=== PATIENT | female | born 1990 | race Caucasian/White ===

== ENCOUNTER 2019-09-18 15:48 | Outpatient (CLI) | payer OTHER, SELFPAY ==
--- NOTE | ~2019-09-18 | US_ITS ---
EXAMINATION: US OB <=14 wk fetus w TV EXAM DATE: 09/18/2019 16:27 INDICATION: , for dating. First trimester. TECHNIQUE: Pelvic obstetrical transabdominal and transvaginal sonogram was performed by a technologi . There are multiple grayscale and Doppler images available for interpretation. There are no greg ier studies of this gestation for comparison. FINDINGS: Uterus measures 10.7 x 8.9 x 9.0 cm. There is intrauterine gestation sac. pole with heart rate confirmed at 176 beats per minute. The 4.2 cm crown-rump length corresponds to estimated gestational age by ultrasound of 11 weeks 1 day, estimated date of confinement 04/07/2020. Yolk sac is identified. There is no sonographic evidence of subchorionic hemorrhage. Left ovary measures 3.2 x 2.6 x 2.7, may have the corpus luteal cyst. The right ovary is not identified. IMPRESSION: Live intrauterine gestation, age by ultrasound 11 weeks 1 day. Reviewed, dictated and finalized at location A.
== END 2019-09-18 15:49 | disposition home or self-care (01) ==
LOC: ANHIMG 15:54
PROVIDERS: PCP Internal Medicine; Visit Provider Student in an Organized Health Care Education/Training Program
DX: Z36.89 Encounter for other specified antenatal screening (principal); Z3A.11 11 weeks gestation of pregnancy
CPT/HCPCS: 76801; 76817

== ENCOUNTER 2019-10-02 15:20 | Outpatient (CLI) | payer OTHER, SELFPAY ==
[2019-10-02 16:19] LABS: Basophils Percent Auto 0.3 % (0.2-1.2); Eosinophils Absolute Auto 0.1 K/mm3 (0-0.3); Eosinophils Percent Auto 0.9 % (0-4.4); Hematocrit 37.4 % (37.0-47.0); Hemoglobin 12.4 g/dL (12.0-15.0); Immature Granulocyte Absolute 0.03 K/mm3 (0.00-0.031); Immature Granulocyte Percent A 0.3 % (0-0.5); Lymphocytes Absolute Auto 3.21 K/mm3 (0.9-3.2); Mean Corpuscular HGB Conc 33.2 g/dl (32-36); Mean Corpuscular Volume 84.4 fl (80-100); Mean Platelet Volume 9.9 fl (7.4-10.4); Monocytes Absolute Auto 0.7 K/mm3 (0.1-0.6); Monocytes Percent Auto 8.1 % (2.6-8.5); Neutrophils Absolute Auto 4.8 K/mm3 (1.3-6.7); Neutrophils Percent Auto 54.4 % (45.5-73.1); Platelet Count Result 264 k/mm3 (150-375); Red Blood Count 4.43 M/mm3 (4.2-5.4); Red Cell Distribution Width 12.6 % (11.5-14.5); White Blood Count 8.9 K/mm3 (4.5-10.0)
[2019-10-02 18:21] LABS: Vitamin D 25 Hydroxy 22.6 ng/mL
[2019-10-02 18:40] LABS: Hepatitis B Surface Antigen Negative (Negative); Rubella IgG Antibody 11.6 IU/ML
[2019-10-02 18:52] LABS: HIV 1/2 Ab P24 Ag Result Negative (Negative); Hepatitis C Virus Antibody Negative (Negative)
[2019-10-03 07:53] LABS: Rapid Plasma Reagin Non-Reactive (NonReactive)
[2019-10-06 20:15] LABS: Varicella IgG Antibody <135.00 Index (>=165.00)
[2019-10-08 00:02] LABS: Hemoglobin 12.6 g/dL (11.7-15.5); MCH 28.2 pg (27.0-33.0); MCV 84.9 FL (80.0-100.0); RDW 13.9 % (11.0-15.0); Red Blood Cell Count 4.48 Mill/uL (3.80-5.10)
== END 2019-10-02 15:21 | disposition home or self-care (01) ==
PROVIDERS: PCP Internal Medicine; Visit Provider Student in an Organized Health Care Education/Training Program
DX: Z34.90 Encounter for supervision of normal pregnancy, unspecified, unspecified trimester (principal); Z3A.00 Weeks of gestation of pregnancy not specified
CPT/HCPCS: 36415; 82306; 83021; 84443; 85025; 86592; 86703; 86762; 86787; 86803; 86850; 86900; 86901; 87340; G0432

== ENCOUNTER 2019-11-29 08:41 | Outpatient (CLI) | payer OTHER, SELFPAY ==
--- NOTE | ~2019-11-29 | US_ITS ---
EXAMINATION: US OB /maternal detail DATE: 11/29/2019 09:53 INDICATION: Second trimester anatomic survey TECHNIQUE: Real-time ultrasound of the pelvis was performed. COMPARISON: None. FINDINGS: There is a single living fetus in variable presentation. The placenta is anterior. heart rate i s 141 beats per minute (bpm). cardiac activity and movement are noted. The amniotic flui d index is subjectively normal. The following anatomy was identified as normal: 4 chamber heart 3 vessel cord cord insertion kidneys urinary bladder stomach spine diaphragm ventricles cisterna magna cerebellum The following biometric data were obtained: Biparietal diameter (BPD): 5.0 cm; head circumference (HC): 18.0 cm; abdominal circumference (AC): 13 .9 cm; femur length (FL): 3.4 cm. The head circumference to abdominal circumference ratio is greater than two standard deviations above the mean. These measurements are otherwise concordant. Estimated weight is 331 g +/- 49 g, which correlates with the 3rd percentile when 04/07/2020 is used as estimated date of delivery. As single measurements, these parameters are each equal to the following estimated gestational ages w ith ranges of +/- 2 standard deviations: BPD: 21 weeks 1 days ( 19 weeks 3 days - 22 weeks 6 days). HC: 20 weeks 3 days ( 19 weeks 0 days - 21 weeks 6 days). AC: 19 weeks 2 days ( 17 weeks 2 days - 21 weeks 3 days). FL: 20 weeks 6 days ( 19 weeks 0 days - 22 weeks 4 days). estimated gestational age based solely on measurements from this exam is 20 weeks 3 days +/- 1 weeks 3 days. IMPRESSION: 1. Single living fetus in variable presentation. 2. Estimated weight is 331 g +/- 49 g, which correlates with the 3rd percentile when 04/07/2020 is used as estimated date of delivery. 3. Head circumference to abdominal circumference ratio greater than two standard deviations above the mean. Reviewed, dictated and finalized at location A. IMPRESSION: 1. Single living fetus in variable presentation. 2. Estimated weight is 331 g +/- 49 g, which correlates with the 3rd perc entile when 04/07/2020 is used as estimated date of delivery. 3. Head circumference to abdominal circumference ratio greater than two standar d deviations above the mean.
== END 2019-11-29 08:42 | disposition home or self-care (01) ==
LOC: ANHIMG 08:45
PROVIDERS: PCP Internal Medicine; Visit Provider Student in an Organized Health Care Education/Training Program
DX: Z36.89 Encounter for other specified antenatal screening (principal); Z3A.20 20 weeks gestation of pregnancy
CPT/HCPCS: 76805

== ENCOUNTER 2020-01-07 13:11 | Outpatient (CLI) | payer OTHER, SELFPAY ==
[2020-01-07 15:11] LABS: Basophils Percent Auto 0.3 % (0.2-1.2); Eosinophils Absolute Auto 0.1 K/mm3 (0-0.3); Hematocrit 35.1 % (37.0-47.0); Hemoglobin 11.6 g/dL (12.0-15.0); Immature Granulocyte Absolute 0.08 K/mm3 (0.00-0.031); Immature Granulocyte Percent A 0.8 % (0-0.5); Lymphocytes Absolute Auto 2.61 K/mm3 (0.9-3.2); Lymphocytes Percent Auto 24.9 % (18.3-44.2); Mean Corpuscular Hemoglobin 29.1 pg (26-34); Mean Platelet Volume 9.6 fl (7.4-10.4); Monocytes Absolute Auto 0.7 K/mm3 (0.1-0.6); Neutrophils Absolute Auto 6.9 K/mm3 (1.3-6.7); Platelet Count Result 272 k/mm3 (150-375); Red Blood Count 3.99 M/mm3 (4.2-5.4); Red Cell Distribution Width 12.8 % (11.5-14.5); White Blood Count 10.5 K/mm3 (4.5-10.0)
[2020-01-07 15:20] LABS: Glucose 1 Hour PP 50gm Dose 105 mg/dL
[2020-01-18 20:55] LABS: CF Result NEGATIVE (NEGATIVE)
== END 2020-01-07 13:12 | disposition home or self-care (01) ==
PROVIDERS: PCP Internal Medicine; Visit Provider Student in an Organized Health Care Education/Training Program
DX: Z34.90 Encounter for supervision of normal pregnancy, unspecified, unspecified trimester (principal); Z3A.00 Weeks of gestation of pregnancy not specified
CPT/HCPCS: 36415; 81220; 81243; 82947; 85025

== ENCOUNTER 2020-01-28 10:37 | Outpatient (CLI) | payer OTHER, SELFPAY ==
[2020-01-28] MEDS: RHO(D) IMMUNE GLOBULIN 300 MCG SYRINGE IM (14:46)
== END 2020-01-28 10:38 | disposition home or self-care (01) ==
PROVIDERS: PCP Internal Medicine; Visit Provider Student in an Organized Health Care Education/Training Program
DX: Z34.02 Encounter for supervision of normal first pregnancy, second trimester (principal)
CPT/HCPCS: 36415; 85461; 90384; 96372; J2790

== ENCOUNTER 2020-02-27 16:48 | Outpatient (CLI) | payer OTHER, SELFPAY ==
[2020-02-27 17:12] LABS: Basophils Percent Auto 0.2 % (0.2-1.2); Eosinophils Absolute Auto 0.1 K/mm3 (0-0.3); Eosinophils Percent Auto 0.5 % (0-4.4); Hemoglobin 11.6 g/dL (12.0-15.0); Immature Granulocyte Absolute 0.05 K/mm3 (0.00-0.031); Immature Granulocyte Percent A 0.5 % (0-0.5); Lymphocytes Absolute Auto 2.52 K/mm3 (0.9-3.2); Lymphocytes Percent Auto 22.9 % (18.3-44.2); Mean Corpuscular HGB Conc 34.1 g/dl (32-36); Mean Corpuscular Hemoglobin 29.4 pg (26-34); Mean Corpuscular Volume 86.1 fl (80-100); Mean Platelet Volume 9.7 fl (7.4-10.4); Monocytes Absolute Auto 0.7 K/mm3 (0.1-0.6); Monocytes Percent Auto 6.4 % (2.6-8.5); Neutrophils Absolute Auto 7.7 K/mm3 (1.3-6.7); Neutrophils Percent Auto 69.5 % (45.5-73.1); Platelet Count Result 267 k/mm3 (150-375); Red Blood Count 3.95 M/mm3 (4.2-5.4); Red Cell Distribution Width 12.4 % (11.5-14.5)
[2020-02-27 18:03] LABS: HIV 1/2 Ab P24 Ag Result Negative (Negative)
[2020-02-29 09:32] LABS: Rapid Plasma Reagin Non-Reactive (NonReactive)
== END 2020-02-27 16:49 | disposition home or self-care (01) ==
LOC: ANHLAB 16:50
PROVIDERS: PCP Internal Medicine; Visit Provider Student in an Organized Health Care Education/Training Program
DX: Z34.90 Encounter for supervision of normal pregnancy, unspecified, unspecified trimester (principal)
CPT/HCPCS: 36415; 85025; 86592; 86703; G0432

== ENCOUNTER 2020-04-06 16:53 | Inpatient (IN) | payer OTHER, SELFPAY ==
[2020-04-06] VITALS (26 sets, daily range): BP systolic 120–184; BP diastolic 66–124; PULSE 65–97; TEMP 36.3–36.6; BMI 34.4
--- NOTE | 2020-04-06 16:53 | LDADM ---
This patient, Mercy Pena, was admitted to Labor/Delivery/Recovery 108 on 04/06/20 at 16:53. Plans for labor, pain management and were discussed with patient. Patient/family oriented to hospital policies and general routines including ID bracelet, bed and alarms, visiting hours, pain management, procedures, bathroom and other care routines, personal items, smoking policy, room service/diet and guest tray routines, security routines, and visiting hours. Patient/Family are encouraged to report perceived risks to care and to ask questions if they do not understand what they are told or what they should do. See OBIX for further documentation.
--- NOTE | 2020-04-06 17:12 | PM.IMHP ---
H&P: HPI History of Present Illness Date/Time: 04/06/20 17:12 The patient is a 29-year-old last menstrual period June of 2019 currently 39 weeks 6 days gestation. Patient is dated by an ultrasound on 09/18/2019 at 11 weeks gestation. Patient presents to Labor and delivery for scheduled elective induction of labor. She reports feeling well today. Reports occasional contractions. Denies any vaginal bleeding or leakage of fluid. Reports good movement. Chief complaint: Induction of Labor Narrative: Mercy Pena is a 29 year old female Review of Systems Review of Systems: All systems reviewed & are unremarkable except as noted in HPI and below Constitutional: Constitutional: Reports as per HPI and Reports no additional constitutional complaints Eyes: Eyes: Reports as per HPI and Reports no additional eye complaints ENT: Reports system reviewed and no additional complaints, except as documented, Reports as per HPI, Reports Normal hearing present and Denies headache(s) Cardiovascular: Cardiovascular: Reports as per HPI, Reports no additional cardiovascular complaints, Denies chest pain and Denies dyspnea Respiratory: Respiratory: Reports as per HPI, Reports no additional respiratory complaints, Denies cough and Denies dyspnea Gastrointestinal: Gastrointestinal: Reports as per HPI, Reports no additional gastrointestinal complaints, Denies abdominal pain, Denies change in bowel habits, Denies change in stool character, Denies nausea and Denies vomiting Genitourinary: Genitourinary: Reports no additional female genitourinary complaints, Reports as per HPI, Denies abnormal vaginal bleeding, Denies genital lesions, Denies hot flashes, Denies dyspareunia, Denies pelvic pain, Denies sexual dysfunction, Denies urinary incontinence, Denies vaginal discharge, Denies vaginal dryness and Denies vaginal odor Musculoskeletal: Musculoskeletal: Reports no additional musculoskeletal complaints and Reports as per HPI Integumentary/Breasts: Skin/Breast: Reports system reviewed and no additional complaints, except as docu, Reports as per HPI, Denies breast pain and Denies nipple discharge Neurologic: Reports system reviewed and no additional complaints, except as documented, Reports as per HPI, Reports Normal hearing present and Denies headache(s) Psychiatric: Psychiatric: Reports no additional psychiatric complaints, Reports as per HPI, Denies anxiety and Denies depression Endocrine: Endocrine: Reports no additional endocrine complaints and Reports as per HPI Hematologic/Lymphatic: Hematologic/Lymphatic: Reports no additional hematologic/lymphatic complaints and Reports as per HPI Allergic/Immunologic: Allergic/Immunologic: Reports no additional allergic/immunologic complaints and Reports as per HPI PMFSH Past Medical History Medical History (Updated 04/06/20 @ 17:23 by May Hardwick MD) Anxiety Depression Surgical History Surgical History [place] teeth removed Family History Family History Father Acute myocardial infarction Grandparent Acute myocardial infarction Social History Social History Smoking status: Current every day smoker Tobacco type: e-cigarettes/vaping Alcohol intake: former Substance use: current Substance use type: marijuana Gender identity (if verbalized by the patient): Female Spiritual care concerns: No Meds Home Medications and Allergies Home Medications Medication Instructions Recorded Confirmed Type vitamin with calcium 1 tablet PO DAILY 09/13/19 04/04/20 History no.72-iron 27 mg-folic acid 1 mg tablet cholecalciferol (vitamin D3) 50 50 mcg PO DAILY #60 cap 10/04/19 04/04/20 Rx mcg (2,000 unit) capsule buspirone 10 mg tablet 10 mg PO BID #60 tablet 01/08/20 04/04/20 Rx sertraline 100 mg tablet 10
[2020-04-06 17:25] LABS: Basophils Percent Auto 0.3 % (0.2-1.2); Eosinophils Absolute Auto 0.1 K/mm3 (0-0.3); Eosinophils Percent Auto 0.6 % (0-4.4); Hematocrit 37.5 % (37.0-47.0); Hemoglobin 12.9 g/dL (12.0-15.0); Immature Granulocyte Absolute 0.04 K/mm3 (0.00-0.031); Immature Granulocyte Percent A 0.3 % (0-0.5); Lymphocytes Absolute Auto 2.84 K/mm3 (0.9-3.2); Lymphocytes Percent Auto 24.4 % (18.3-44.2); Mean Corpuscular HGB Conc 34.4 g/dl (32-36); Mean Corpuscular Hemoglobin 29.9 pg (26-34); Mean Corpuscular Volume 86.8 fl (80-100); Mean Platelet Volume 10.4 fl (7.4-10.4); Monocytes Absolute Auto 0.9 K/mm3 (0.1-0.6); Monocytes Percent Auto 7.9 % (2.6-8.5); Neutrophils Absolute Auto 7.7 K/mm3 (1.3-6.7); Neutrophils Percent Auto 66.5 % (45.5-73.1); Platelet Count Result 268 k/mm3 (150-375); Red Blood Count 4.32 M/mm3 (4.2-5.4); Red Cell Distribution Width 12.2 % (11.5-14.5); White Blood Count 11.6 K/mm3 (4.5-10.0)
[2020-04-06] MEDS: DINOPROSTONE 10 MG VAG INSERT VAGINAL (18:14)
[2020-04-06] MEDS: fentaNYL CITRATE INJ (*CRX) 100 MCG/2 ML VIAL 50 MCG IV PUSH (22:02)
[2020-04-06 22:14] LABS: Rapid Plasma Reagin Non-Reactive (NonReactive)
[2020-04-06] MEDS: fentaNYL CITRATE INJ (*CRX) 100 MCG/2 ML VIAL IV PUSH (23:04)
[2020-04-06] MEDS: LACTATED RINGERS 1,000 ML 125 ML IV CONT (23:59)
[2020-04-07] VITALS (104 sets, daily range): BP systolic 91–180; BP diastolic 51–105; PULSE 28–290; RESP 16–20; TEMP 36–36.7; O2SAT 86–100
--- NOTE | 2020-04-07 00:30 | WPDANESEPPF ---
Anes - Initial Pre Proc Eval Date/Time: 04/07/20 00:30 Surgeon: May Hardwick MD Pre Op Diagnosis: Induction of Labor Patient Data Age: 29 Gender: F Height: 1.83 m Weight: 115 kg Last Vital Signs Temp 36.6 C 04/06/20 23:11 Pulse 80 04/07/20 00:28 BP 150/84 H 04/07/20 00:28 Pulse Ox 99 04/07/20 00:29 Allergies Allergy/AdvReac Type Severity Reaction Status Date / Time No Known Allergies Allergy Verified 04/01/20 14:53 Home Medications Medication Instructions Recorded Confirmed Type vitamin with calcium 1 tablet PO DAILY 09/13/19 04/06/20 History no.72-iron 27 mg-folic acid 1 mg tablet cholecalciferol (vitamin D3) 50 50 mcg PO DAILY #60 cap 10/04/19 04/06/20 Rx mcg (2,000 unit) capsule buspirone 10 mg tablet 10 mg PO BID #60 tablet 01/08/20 04/06/20 Rx sertraline 100 mg tablet 100 mg PO DAILY #30 tablet 01/08/20 04/06/20 Rx ondansetron 4 mg disintegrating 4 mg PO Q6H #30 tablet 03/13/20 04/06/20 Rx tablet Laboratory Tests 04/06/20 04/06/20 04/06/20 17:19 17:19 17:19 WBC 11.6 K/mm3 H K/mm3 (4.5-10.0) RBC 4.32 M/mm3 M/mm3 (4.2-5.4) Hgb 12.9 g/dL g/dL (12.0-15.0) Hct 37.5 % % (37.0-47.0) MCV 86.8 fl fl (80-100) MCH 29.9 pg pg (26-34) MCHC 34.4 g/dl g/dl (32-36) RDW 12.2 % % (11.5-14.5) Plt Count 268 k/mm3 k/mm3 (150-375) MPV 10.4 fl fl (7.4-10.4) Immature Gran % (Auto) 0.3 % % (0-0.5) Neut % (Auto) 66.5 % % (45.5-73.1) Lymph % (Auto) 24.4 % % (18.3-44.2) Ballard % (Auto) 7.9 % % (2.6-8.5) Eos % (Auto) 0.6 % % (0-4.4) Baso % (Auto) 0.3 % % (0.2-1.2) Lymph # (Auto) 2.84 K/mm3 K/mm3 (0.9-3.2) [place] # (Auto) 0.9 K/mm3 H K/mm3 (0.1-0.6) Eos # (Auto) 0.1 K/mm3 K/mm3 (0-0.3) Baso # (Auto) 0.0 K/mm3 K/mm3 (0.0-0.1) Abs Immat Gran (auto) 0.04 K/mm3 H K/mm3 (0.00-0.031) Absolute Neuts (auto) 7.7 K/mm3 H K/mm3 (1.3-6.7) Absolute Nucleated RBC 0.0 K/mm3 K/mm3 (0.0-0.012) Nucleated RBC % 0.0 % % (0.0-0.2) RPR Non-reactive (NonReactive) Blood Type O Negative Antibody Screen Negative Patient hx anesthesia problems: none Family hx anesthesia problems: none PMFSH Past Medical History Medical History (Updated 04/07/20 @ 00:30 by Cam Ferris DO) Anxiety Asthma Depression Surgical History Surgical History [place] teeth removed Family History Family History Father Acute myocardial infarction Grandparent Acute myocardial infarction Social History Social History Smoking status: Current every day smoker Tobacco type: e-cigarettes/vaping Second hand tobacco smoke exposure: Yes (Mother in law smokes outside) Alcohol intake: former Substance use: current Substance use type: marijuana Gender identity (if verbalized by the patient): Female Spiritual care concerns: No Anes - Eval Final PreProcedure Day of Procedure 04/07/20 00:30 Patient weight: obese ASA classification: III Anesthesia type and monitoring: regional epidural Informed Consent: The patient's anesthetic plan and its attendant risks and benefits were discussed with the patient/family/POA. Questions were solicited and answers provided to the satisfaction of the patient/family/POA.
[2020-04-07] MEDS: LACTATED RINGERS 1,000 ML 125 ML IV CONT (01:14)
[2020-04-07] MEDS: OXYTOCIN 30 UNITS/NS 500 ML 30 UNITS/500 ML BAG IV CONT (02:24)
--- NOTE | 2020-04-07 05:49 | WPDHPUPDATE1 ---
History and Physical Update Update Date/Time: 04/07/20 05:49 History and Physical has been reviewed, including an updated exam of the patient. There are NO changes in the patient's condition. Risks, benefits, and alternatives have been discussed and questions answered. Patient agrees to proceed with procedure.
--- NOTE | 2020-04-07 05:49 | PM.OBPRVD ---
OB - Delivery Note Procedure Delivery date: 04/07/20 Procedure: The patient is a 29-year-old now a who presented to Labor and delivery on the evening of 04/06/2020 at 39w6d for scheduled elective induction of labor. The patient was admitted to Labor and delivery and induction of labor was begun with Cervidil. Initial cervical exam was approximately 1 cm dilated. Contractions began to increase in frequency and intensity and patient began to make cervical change. Cervidil remained in place for approximately 4 hours after which time it was removed. Cervical exam at that time was approximately 4 cm dilated. Patient continued to make progressive cervical change on her own. Pitocin was, however, started at approximately 2:30 a.m. for labor augmentation. Patient became uncomfortable and requested an epidural for pain management which was placed without difficulty. Patient continued to make cervical change and was noted to be fully dilated at 4:04 a.m. Intermittent decelerations and low baseline to the 90s and low 100s was noted periodically on monitoring. Tracing recovered with minimal interventions and O2 by facemask was applied in between contractions. Artificial rupture membranes was performed. Thick meconium-stained amniotic fluid was noted. Patient was encouraged to push and found to be pushing well. Intermittent decelerations continued with adequate recovery in between. Patient was prepped and draped for delivery. At 5:08 a.m., patient delivered infant's head atraumatically without difficulty in BENITO presentation. Occiput restituted to the maternal left side. With subsequent push, the infant's neck, shoulders, and rest of body delivered without difficulty. Patient was not stimulated due to presence of meconium, however, whimpered slightly on her own. The cord was clamped and cut and was taken to warmer where care was assumed by awaiting service superintendent. A segment of cord was collected for cord gases. Cord blood was also collected. The placenta was delivered spontaneous and intact. Uterine fundus was noted to be firm with massage. On inspection, bilateral periurethral lacerations were noted. These lacerations were repaired with 3-0 Vicryl in the usual fashion. Excellent hemostasis was noted. Straight catheterization was performed with clear urine returned. Estimated blood loss for entire delivery was 250 cc. The was a live-born female infant, Apgars 5 and 9, weighing 6 lb 10 oz. Both mother and baby doing well at end of delivery. events: Labor Induction and Meconium Stained Fluid Induction method: per cervidil protocol Delivery augmentation: pitocin Delivery monitor: external FHT and external uterine Route of delivery: Laceration Description: Periurethral (bilateral) Delivery repair: vicryl (3-0) Specimen: Yes (placenta and cord, cord gases, cord blood) Quantitative Blood Loss: 250 Anesthesia type: Epidural Disposition: floor Complications: no immediate complications [place] Baby Date of : 04/07/20 Time of : 05:08 Weeks of gestation at delivery: 40 gender: Female Weight (pounds): 6 Weight (ounces): 10 presentation: vertex position: Left Occiput Anterior Placenta delivery description: Spontaneous cord vessel description: 3 Vessels and Clamped/Cut score one minute: 5 score five minutes: 9
[2020-04-07] MEDS: OXYTOCIN 30 UNITS/NS 500 ML 30 UNITS/500 ML BAG 125 UNITS IV CONT (05:50)
[2020-04-07] MEDS: WITCH HAZEL 40 PADS 1 PAD TOPICAL (10:18)
[2020-04-07] MEDS: BENZOCAINE 20% AER SPR (*SP) 56 GM CAN 1 SPRAY TOPICAL (10:18)
--- NOTE | 2020-04-07 10:25 | PC.NURSE ---
Pt arrived on unit via wheelchair accompanied by significant other and infant and taken to room 288. PT oriented to room 288 and surrounding area. PT introductions made and plan of care discussed per post , pain management, breast feeding, daily care activities. Welcome packet reviewed and discussed. PT verbalized understandings of such care.
[2020-04-07] MEDS: IBUPROFEN 600 MG TABLET PO ×2 (10:54→16:42)
[2020-04-07] MEDS: MULTIVIT/MIN/PREN/FOL AC/IRON TABLET 1 TAB PO (10:55)
[2020-04-07] MEDS: DOCUSATE SODIUM 100 MG CAPSULE PO ×2 (10:55→16:42)
[2020-04-07] MEDS: SERTRALINE HCL 50 MG TABLET 100 MG PO (14:28)
[2020-04-07] MEDS: ACETAMINOPHEN 325 MG TABLET 650 MG PO (16:43)
[2020-04-07] MEDS: busPIRone HCL 10 MG TABLET PO (16:51)
[2020-04-08 05:05] LABS: Hematocrit 31.4 % (37.0-47.0); Hemoglobin 10.7 g/dL (12.0-15.0)
--- NOTE | 2020-04-08 07:52 | WPDANLDPN2 ---
Anes-Prog Note L&D Date/Time: 04/08/20 07:52 Comfortable throughout: labor and delivery Neuraxial method: epidural Epidural/Spinal procedure site: clean & non-tender Neuro status: Neuro function grossly intact. Cardiovascular status: normal Respiratory status: normal Airway patency: baseline Mental status: baseline Post-Op hydration status: normal Vital Signs: Last Vital Signs Temp 36.7 C 04/07/20 20:00 Pulse 83 04/07/20 20:00 Resp 16 04/07/20 20:00 BP 126/86 04/07/20 20:00 Pulse Ox 100 04/07/20 20:00 Pain score (VAS): 0 I/O: Intake & Output 04/07/20 04/07/20 04/08/20 15:59 23:59 07:59 Intake Total 1740 Output Total 89 Balance 1651 Post-procedural complaints: none Patient feedback: Patient satisfied with anesthetic care.
[2020-04-08 08:30] VITALS: BP 138/90; PULSE 74; RESP 18; TEMP 36.2
--- NOTE | 2020-04-08 08:49 | PM.OBPNVD ---
OB - PN: Subj Subjective Date/time seen: 04/08/20 08:49 Patient doing well. Reports minimal cramping that is well controlled with medication. Denies any headache, chest pain, shortness of breath, nausea or vomiting. Ambulating well. Minimal-moderate lochia. OB - PN: Obj Data Labs CBC & Chem 7: 04/08/20 04:25 Labs: Laboratory Results - last 24 hr 04/08/20 04/08/20 04:25 04:36 Hgb 10.7 L Hct 31.4 L Blood Type O Negative Antibody Screen TNP Screen Negative Baby's Blood Type A pos Baby's ALANA Negative Doses of RhIg Required 1 OB - PN A/P Assessment and Plan (1) Normal spontaneous vaginal delivery: Code(s): O80 - Encounter for full-term uncomplicated delivery Status: Acute Assessment and Plan: PPD#1 doing well continue routine care pt requesting PPD#1 discharge if infant cleared, which I think is reasonable emergency precautions reviewed f/u in office in 4-6 weeks Time Spent With Patient Time: Total time spent is greater than 50% in coordination of care (as documented) at patient's floor/unit and/or counseling patient: Exam Const: General: cooperative, healthy appearing, comfortable and no acute distress GI: GI Palp: Yes Soft to palpation and No Tenderness to palpation present (GI) Other: fundus below umbilicus Extrem: Right lower extremity: edema (trace) Left lower extremity: edema (trace)
--- NOTE | 2020-04-08 08:57 | PM.OBDSVD ---
DS: Admitting Diagnosis Admitting Diagnosis Admitting Diagnosis: Induction of Labor OB - DS: Summary OB Procedures : None OB Procedures Intrapartum: Spontaneous Vag Delivery OB Procedures: : RHo (D) lg Time Spent with Patient Time attestation: Total time spent providing and/or coordinating discharge services: DS: Data Data Completed and Pending Pending studies at discharge: Pending at discharge 04/07/20 05:11 Surgical [PTH] Routine Labs on day of discharge: Labs from last 24 hours 04/08/20 04/08/20 04:36 04:25 Hgb 10.7 L Hct 31.4 L Blood Type O Negative Antibody Screen TNP Screen Negative Baby's Blood Type A pos Baby's ALANA Negative Doses of RhIg Required 1 Discharge Plan Discharge Attending physician on discharge: May Hardwick Discharging Clinician: May Hardwick Anticipated Discharge Date/Time: 04/08/20 08:58 Patient Disposition: Home, Self-Care Activity: as tolerated and pelvic rest Diet: regular Discharge Instructions: Call office ([phone]) to schedule a visit in 4-6 weeks. You may take Ibuprofen 600mg every 6 hours as needed for pain. Pain medication may make you constipated. It may be helpful to take an oesz-rfo-sfboote stool softener, such as Colace and/or Senokot, along with the pain medication to help lessen constipation. Call office or go to ED for pain not controlled with medication, headache, chest pain, shortness of breath, fever, chills, persistent nausea or vomiting, severe abdominal pain, heavy vaginal bleeding >2 pads/hour, foul vaginal discharge or odor, or problems with your breasts. Patient Instructions: Antibiotic Form Stand Alone Forms: General Discharge Information Follow-up/Referrals: May Hardwick MD [Physician] - Discharge Medications: Continued M-Mara Plus 27 mg iron- 1 mg tablet 1 tablet PO DAILY RF: 0 ondansetron 4 mg tablet,disintegrating 4 mg PO Q6H Qty: 30 RF: 0 cholecalciferol (vitamin D3) 50 mcg (2,000 unit) capsule 50 mcg PO DAILY Qty: 60 RF: 0 buspirone 10 mg tablet 10 mg PO BID Qty: 60 RF: 0 sertraline 100 mg tablet 100 mg PO DAILY Qty: 30 RF: 0 Date of admission: 04/06/20 16:53 Primary Care Provider: Stan Zuniga Admitting Provider: May Hardwick Attending physician on admission: May Hardwick Condition: Stable
[2020-04-08] MEDS: MULTIVIT/MIN/PREN/FOL AC/IRON TABLET 1 TAB PO (09:12)
[2020-04-08] MEDS: busPIRone HCL 10 MG TABLET PO (09:13)
[2020-04-08] MEDS: IBUPROFEN 600 MG TABLET PO (09:13)
[2020-04-08] MEDS: SERTRALINE HCL 50 MG TABLET 100 MG PO (09:13)
[2020-04-08] MEDS: ACETAMINOPHEN 325 MG TABLET 650 MG PO (09:14)
--- NOTE | 2020-04-08 12:08 | PCCCNOTE ---
Care Coordination Consult: Met with pt. and FOB Omi. Pt. lives at home with Omi. This is pt.'s first child. Omi has a 13 year old daughter. Pt. has supportive family including her mother who plans to come stay with them at discharge to assist. Pt. and Omi have a crib, carseat, clothing, diapers, and bottles at home for baby. Pt. was provided resources however reports they do not plan on using WIC or Healthy Family services. Pt. reports she smokes cigarettes and vapes marijuana recreationally. Pt. is aware she was not tested at admission, baby was not tested at . Pt. denies any further case management needs. Pt. has questions for [facility] nurse, nursing is aware.
[2020-04-08] MEDS: RHO(D) IMMUNE GLOBULIN 300 MCG SYRINGE IM (12:26)
[2020-04-10 11:28] VITALS: BP 144/86; PULSE 91; RESP 20; TEMP 36.9; O2SAT 100
== END 2020-04-08 15:03 | disposition home or self-care (01) | DRG 806 ==
LOC: ANHLDR 17:04 → ANHOB2 04-07 10:30
PROVIDERS: Admitting Provider Student in an Organized Health Care Education/Training Program; PCP Internal Medicine; Visit Provider Student in an Organized Health Care Education/Training Program
DX: O76 Abnormality in fetal heart rate and rhythm complicating labor and delivery (principal); O36.0930 Maternal care for other rhesus isoimmunization, third trimester, not applicable or unspecified; Z37.0 Single live birth; O71.82 Other specified trauma to perineum and vulva; O99.334 Smoking (tobacco) complicating childbirth; F17.290 Nicotine dependence, other tobacco product, uncomplicated; O99.344 Other mental disorders complicating childbirth; F41.9 Anxiety disorder, unspecified; O77.0 Labor and delivery complicated by meconium in amniotic fluid; Z3A.39 39 weeks gestation of pregnancy
CPT/HCPCS: 36415; 85014; 85018; 85025; 85461; 86592; 86850; 86900; 86901; 88307; 90384; A9270; J2590; J2790; J2795; J3010; J7120

== ENCOUNTER 2023-01-05 17:10 | Outpatient (CLI) | payer OTHER, SELFPAY ==
[2023-01-05 17:37] LABS: Basophils Absolute Auto 0.04 K/mm3 (0.00-0.10); Basophils Percent Auto 0.5 % (0.0-1.0); Eosinophils Percent Auto 1.1 % (1.0-6.0); Hematocrit 40.7 % (35.0-49.0); Hemoglobin 13.3 g/dL (12.0-15.0); Immature Granulocyte Absolute 0.03 K/mm3 (0.00-0.00); Immature Granulocyte Percent A 0.3 % (0.0-0.0); Lymphocytes Absolute Auto 3.12 K/mm3 (1.10-4.50); Lymphocytes Percent Auto 35.5 % (18.0-42.0); Mean Corpuscular HGB Conc 32.7 g/dL (32.0-36.0); Mean Corpuscular Hemoglobin 27.3 pg (27.0-31.0); Mean Corpuscular Volume 83.6 fL (78.0-102.0); Mean Platelet Volume 9.1 fl (9.2-11.8); Monocytes Absolute Auto 0.54 K/mm3 (0.10-0.90); Monocytes Percent Auto 6.1 % (2.0-11.0); Neutrophils Percent Auto 56.5 % (50.0-70.0); Platelet Count Result 304 K/mm3 (150-420); Red Blood Count 4.87 M/mm3 (4.20-5.40); Red Cell Distribution Width 12.8 % (11.6-14.4); White Blood Count 8.8 K/mm3 (4.8-10.8)
[2023-01-05 17:39] LABS: Appearance Urine Clear (Clear); Bilirubin Urine Negative (Negative); Blood Urine Negative (Negative); Color Urine Yellow (Yellow); Glucose Urine UA Negative (Negative); Ketones Urine Negative (Negative); Leukocyte Esterase Ur Negative (Negative); Nitrate Urine Negative (Negative); Protein Urine Negative (Negative); Specific Grav Ur >= 1.030 (1.010-1.020); Urobilinogen Urine 0.2 mg/dL (0.2-1.0)
[2023-01-05 17:43] LABS: Add Urine Microscopic? NO
[2023-01-05 18:25] LABS: Alanine Aminotransferase 13 U/L (14-59); Albumin Level 3.6 g/dL (3.4-5.0); Alkaline Phosphatase 91 U/L (46-116); Anion Gap 8 mmol/L (8-16); Aspartate Amino Transferase 11 U/L (15-37); Bilirubin,Total 0.2 mg/dL (0.00-1.00); Blood Urea Nitrogen 12 mg/dL (7-18); Carbon Dioxide 26 mmol/L (21-32); Chloride 103 mmol/L (98-108); Creatine Kinase 93 U/L (26-192); Estimated Glomerular Filt Rate 56; Glucose 129 mg/dL (70-99); Osmolality Calculated 285 mOsm/kg (285-295); Sodium 137 mmol/L (136-145); Thyroid Stimulating Hormone 1.24 uIU/mL (0.36-3.74); Total Protein 6.9 g/dL (6.4-8.2)
[2023-01-05 18:46] LABS: CRP < 0.5 mg/dL (0.0-0.9)
[2023-01-11 15:54] LABS: Hemoglobin A1C 5.6 % (<5.7)
== END 2023-01-05 17:11 | disposition home or self-care (01) ==
LOC: CHSLAB 17:11
PROVIDERS: PCP Internal Medicine; Visit Provider Internal Medicine
DX: M79.7 Fibromyalgia (principal)
CPT/HCPCS: 36415; 80053; 81003; 82550; 83036; 84443; 85025; 86140

== ENCOUNTER 2023-01-20 10:11 | Emergency (ER) | payer OTHER, SELFPAY ==
[2023-01-20 10:15] VITALS: BP 131/87; PULSE 83; RESP 14; TEMP 37; O2SAT 100
[2023-01-20 10:40] LABS: Appearance Urine Clear (Clear); Bilirubin Urine Negative (Negative); Blood Urine Negative (Negative); Color Urine Light Yellow (Yellow); Glucose Urine UA Negative (Negative); Ketones Urine Negative (Negative); Leukocyte Esterase Ur Negative LEU/UL (Negative); Nitrate Urine Negative (Negative); Protein Urine Negative (Negative); Specific Grav Ur <= 1.005 (1.010-1.020); Urobilinogen Urine 0.2 mg/dL (0.2-1.0); pH Urine 5.5 (5.0-8.0)
[2023-01-20 10:48] LABS: Basophils Absolute Auto 0.05 K/mm3 (0.00-0.10); Basophils Percent Auto 0.7 % (0.0-1.0); Eosinophils Absolute Auto 0.13 K/mm3 (0.02-0.50); Eosinophils Percent Auto 1.8 % (1.0-6.0); Hemoglobin 13.7 g/dL (12.0-15.0); Immature Granulocyte Absolute 0.04 K/mm3 (0.00-0.00); Immature Granulocyte Percent A 0.5 % (0.0-0.0); Lymphocytes Absolute Auto 2.56 K/mm3 (1.10-4.50); Lymphocytes Percent Auto 34.9 % (18.0-42.0); Mean Corpuscular HGB Conc 32.6 g/dL (32.0-36.0); Mean Corpuscular Hemoglobin 27.6 pg (27.0-31.0); Mean Corpuscular Volume 84.5 fL (78.0-102.0); Mean Platelet Volume 9.2 fl (9.2-11.8); Monocytes Absolute Auto 0.53 K/mm3 (0.10-0.90); Monocytes Percent Auto 7.2 % (2.0-11.0); Neutrophils Percent Auto 54.9 % (50.0-70.0); Platelet Count Result 244 K/mm3 (150-420); Red Blood Count 4.97 M/mm3 (4.20-5.40); Red Cell Distribution Width 13.1 % (11.6-14.4); White Blood Count 7.3 K/mm3 (4.8-10.8)
--- NOTE | 2023-01-20 10:48 | ED.ABDPAIN ---
HPI - Abdominal Pain General Chief Complaint: Abdominal Pain Stated Complaint: abdominal pain Time Seen by Provider: 01/20/23 10:15 Source: patient Mode of arrival: ambulatory Limitations: no limitations History of Present Illness HPI narrative: this is a 32-year-old female with no significant past medical history presents with a 1 day history of abdominal pain localized to her left lower quadrant with no flank pain no dysuria no hematuria no radiation of her, does have history of fibromyalgia and there is no fever chills no chest pain no shortness of breath. Patient has been having painful intercourse. There is no vaginal bleeding no vaginal discharge. MD elicited complaint: abdominal pain Onset (ago): hour(s) Pain Consistency: intermittent Location: LLQ Severity: moderate Pain scale (0-10): 6 Quality: aching Radiation: none Migration to: no migration Exacerbating factors: nothing Relieving factors: nothing Associated symptoms: nausea and vomiting Related Data Home Medications Medication Instructions Recorded Confirmed duloxetine 20 mg capsule,delayed 20 mg PO BID 09/30/20 01/20/23 release Allergies Allergy/AdvReac Type Severity Reaction Status Date / Time naproxen [From Aleve] Allergy Rash Verified 01/20/23 10:18 Review of Systems Review of Systems: All systems reviewed & are unremarkable except as noted in HPI and below PMFSH Past Medical History Medical History Anxiety Asthma Depression Fibromyalgia History of vaginal delivery Surgical History Surgical History [place] teeth removed Family History Family History Father Acute myocardial infarction Grandparent Acute myocardial infarction Social History Social History Smoking status: Never smoker Tobacco type: e-cigarettes/vaping Second hand tobacco smoke exposure: Yes (Mother in law smokes outside) Alcohol intake: former Substance use: current Substance use type: marijuana Gender identity (if verbalized by the patient): Female Spiritual care concerns: No Exam Const: General: healthy appearing Nutritional Appearance: well nourished Orientation/consciousness: patient oriented x3 Limitations: no limitations HENMT: Head: normal to inspection Eyes: Conjunctivae: conjunctivae normal Pupils: Equal, round and reactive pupils present EOM: EOMs intact bilaterally Chest: Chest palpation & inspection: normal inspection of the chest Resp: Effort & Inspection: normal respiratory effort Auscultation: clear to auscultation bilaterally Cardio: Rate: regular rate Rhythm: regular rhythm GI: GI Palp: Yes Soft to palpation and Yes Tenderness to palpation present (GI) : General: Yes bladder normal to palpation Urinary Catheter: Urinary Catheter: patent and draining Back/Spine/Pelvis: Back: no CVA tenderness Skin: General skin exam: normal color Rashes: no rashes Wounds: no wounds Neuro: General: patient oriented x3 Cranial nerves: Yes Nystagmus not present Speech: normal speech Gait exam (Neuro): Normal gait present Extrem: General: normal to inspection Psych: Mental Status: mental status grossly normal Affect: normal affect Course Course Emergency Course: Will avoid CT scan since the pain patient's test came back positive otherwise patient states that medicine pain medication has improved her pain, and patient has a positive test, the rest of her blood work came back and was unremarkable including UA which was unremarkable. Patient did receive Zofran and morphine for pain. Spoke to patient about positive test and inform patient that she should follow with her S attrition our primary for further evaluation. Vital Signs Vital signs: Vital Signs Temperat
[2023-01-20 10:53] LABS: Add Urine Microscopic? NO
[2023-01-20] MEDS: SODIUM CHLORIDE 0.9% IV 1,000 ML 999 ML IV CONT (10:54)
[2023-01-20] MEDS: ONDANSETRON INJ 4 MG/2 ML VIAL IV PUSH (10:54)
[2023-01-20] MEDS: MORPHINE SULFATE (*CRX) 4 MG/ML INJ IV PUSH (10:55)
[2023-01-20 11:03] LABS: Alanine Aminotransferase 13 U/L (14-59); Albumin Level 3.4 g/dL (3.4-5.0); Alkaline Phosphatase 81 U/L (46-116); Anion Gap 7 mmol/L (8-16); Aspartate Amino Transferase < 10 U/L (15-37); Bilirubin,Total 0.2 mg/dL (0.00-1.00); Blood Urea Nitrogen 12 mg/dL (7-18); Calcium 9.4 mg/dL (8.5-10.1); Carbon Dioxide 28 mmol/L (21-32); Chloride 100 mmol/L (98-108); Estimated CRCL calculation 96 ml/min; Estimated Glomerular Filt Rate > 60; Glucose 93 mg/dL (70-99); Lipase 29 U/L (16-77); Osmolality Calculated 279 mOsm/kg (285-295); Potassium 4.2 mmol/L (3.5-5.1); Sodium 135 mmol/L (136-145); Total Protein 7.2 g/dL (6.4-8.2)
[2023-01-20 11:08] LABS: Pregnancy On Board Control Positive; Urine Pregnancy Test Positive
[2023-01-20 11:08] LABS: Lactic Acid Reflex 0.8 mmol/L (0.4-2.0)
[2023-01-20 11:11] VITALS: BP 130/78; PULSE 90; RESP 18; TEMP 36.6; O2SAT 100
[2023-01-20 11:52] VITALS: BP 117/72; PULSE 80; TEMP 36.6; O2SAT 99
[2023-01-20 12:15] VITALS: BP 128/78; PULSE 79; RESP 16; TEMP 36.8; O2SAT 100
== END 2023-01-20 12:18 | disposition home or self-care (01) ==
PROVIDERS: Emergency Provider Emergency Medicine; PCP Internal Medicine
DX: O26.891 Other specified pregnancy related conditions, first trimester (principal); R10.32 Left lower quadrant pain; O99.341 Other mental disorders complicating pregnancy, first trimester; F41.9 Anxiety disorder, unspecified; Z3A.01 Less than 8 weeks gestation of pregnancy; Z79.899 Other long term (current) drug therapy
CPT/HCPCS: 36415; 80053; 81003; 81025; 83605; 83690; 85025; 96361; 96374; 96375; 99284; J2270; J2405; J7030

== ENCOUNTER 2023-06-27 10:46 | Outpatient (RCR) | payer OTHER, SELFPAY ==
[2023-06-27 13:12] LABS: Hematocrit 34.5 % (37.0-47.0); Hemoglobin 11.2 g/dL (12.0-15.0)
[2023-06-27 13:19] LABS: Glucose 1 Hour PP 50gm Dose 158 mg/dL
[2023-06-27 14:00] LABS: HIV 1/2 Ab P24 Ag Result Negative (Negative)
[2023-06-29] MEDS: RHO(D) IMMUNE GLOBULIN 300 MCG/2 ML SYRINGE IM (17:52)
== END 2023-09-25 23:59 | disposition home or self-care (01) ==
LOC: ANHLAB 10:46
PROVIDERS: PCP Internal Medicine; Visit Provider Advanced Practice Midwife
DX: Z11.4 Encounter for screening for human immunodeficiency virus [HIV] (principal); Z29.13 Encounter for prophylactic Rho(D) immune globulin; O36.0130 Maternal care for anti-D [Rh] antibodies, third trimester, not applicable or unspecified; Z3A.00 Weeks of gestation of pregnancy not specified
CPT/HCPCS: 36415; 82947; 85014; 85018; 85461; 86703; 86850; 86900; 86901; 90384; G0432; J2790

== ENCOUNTER 2023-08-19 17:31 | Outpatient (CLI) | payer OTHER, SELFPAY ==
[2023-08-19 18:04] VITALS: BP 127/64; PULSE 80
[2023-08-19 18:08] VITALS: BMI 35.7
[2023-08-19 18:09] LABS: Basophils Percent Auto 0.3 % (0.2-1.2); Eosinophils Absolute Auto 0.1 K/mm3 (0-0.3); Eosinophils Percent Auto 0.5 % (0-4.4); Hematocrit 37.2 % (37.0-47.0); Hemoglobin 12.2 g/dL (12.0-15.0); Immature Granulocyte Absolute 0.03 K/mm3 (0.00-0.031); Immature Granulocyte Percent A 0.3 % (0-0.5); Lymphocytes Absolute Auto 3.06 K/mm3 (0.9-3.2); Lymphocytes Percent Auto 27.8 % (18.3-44.2); Mean Corpuscular HGB Conc 32.8 g/dl (32-36); Mean Corpuscular Hemoglobin 28.6 pg (26-34); Mean Corpuscular Volume 87.1 fl (80-100); Mean Platelet Volume 10.4 fl (7.4-10.4); Monocytes Absolute Auto 0.6 K/mm3 (0.1-0.6); Monocytes Percent Auto 5.5 % (2.6-8.5); Neutrophils Absolute Auto 7.2 K/mm3 (1.3-6.7); Neutrophils Percent Auto 65.6 % (45.5-73.1); Platelet Count Result 248 k/mm3 (150-375); Red Blood Count 4.27 M/mm3 (4.2-5.4); Red Cell Distribution Width 12.8 % (11.5-14.5)
[2023-08-19 18:14] LABS: Creatinine Urine 188.1 mg/dL; Total Protein Urine Random 11 mg/dL; Ur Ttl Prot Creatinine Ratio 0.06 mg/mg (0-0.20)
[2023-08-19 18:16] VITALS: BP 119/80; PULSE 77
[2023-08-19 18:24] LABS: Appearance Urine Cloudy (Clear); Bacteria Urine Rare /hpf; Bilirubin Urine Negative (Negative); Blood Urine Negative (Negative); Color Urine Yellow (Yellow); Glucose Urine UA Negative (Negative); Ketones Urine Negative (Negative); Leukocyte Esterase Ur 1+ LEU/UL (Negative); Nitrate Urine Negative (Negative); Non Pathogenic Casts 0-2; Protein Urine Trace mg/dL (Negative); RBC Urine 0-2 /hpf (0-2); Specific Grav Ur 1.025 (1.001-1.035); Squamous Epithelial Cell Urine Moderate /hpf (Few); pH Urine 6.5 (5.0-9.0)
[2023-08-19 18:26] VITALS: BP 127/64; PULSE 78
[2023-08-19 18:26] LABS: Alanine Aminotransferase 10 U/L (6-35); Albumin Level 3.7 g/dL (3.5-5.1); Alkaline Phosphatase 163 U/L (38-126); Anion Gap 7 mmol/L (4-12); Aspartate Amino Transferase 16 U/L (14-36); Bilirubin,Total 0.2 mg/dL (0.2-1.3); Blood Urea Nitrogen 11 mg/dL (7-17); Calcium 9.1 mg/dL (8.4-10.2); Carbon Dioxide 20 mmol/L (22-30); Chloride 106 mmol/L (98-107); Estimated CRCL calculation 143 ml/min; Estimated Glomerular Filt Rate > 60; Glucose 126 mg/dL (65-110); Potassium 3.9 mmol/L (3.4-5.0); Sodium 133 mmol/L (137-145); Uric Acid 5.9 mg/dL (2.5-7.5)
[2023-08-19 18:32] LABS: Add Urine Microscopic? YES
== END 2023-08-19 18:30 | disposition home or self-care (01) ==
LOC: ANHOBOP 17:39 → ANHLDR 17:46
PROVIDERS: PCP Internal Medicine; Visit Provider Advanced Practice Midwife
DX: O13.9 Gestational [pregnancy-induced] hypertension without significant proteinuria, unspecified trimester (principal); Z3A.00 Weeks of gestation of pregnancy not specified
CPT/HCPCS: 36415; 59025; 80053; 81001; 82570; 84112; 84156; 84550; 85025; 87086; 99199

== ENCOUNTER 2023-08-24 18:23 | Inpatient (IN) | payer OTHER, SELFPAY ==
[2023-08-24] VITALS (13 sets, daily range): BP systolic 102–140; BP diastolic 52–88; PULSE 67–86; TEMP 36.3; BMI 35.9
[2023-08-24 19:15] LABS: Basophils Percent Auto 0.2 % (0.2-1.2); Eosinophils Absolute Auto 0.1 K/mm3 (0-0.3); Eosinophils Percent Auto 0.4 % (0-4.4); Hematocrit 33.6 % (37.0-47.0); Hemoglobin 11.4 g/dL (12.0-15.0); Immature Granulocyte Absolute 0.05 K/mm3 (0.00-0.031); Immature Granulocyte Percent A 0.4 % (0-0.5); Lymphocytes Absolute Auto 3.11 K/mm3 (0.9-3.2); Lymphocytes Percent Auto 22.8 % (18.3-44.2); Mean Corpuscular HGB Conc 33.9 g/dl (32-36); Mean Corpuscular Hemoglobin 28.9 pg (26-34); Mean Corpuscular Volume 85.3 fl (80-100); Mean Platelet Volume 10.3 fl (7.4-10.4); Monocytes Absolute Auto 0.9 K/mm3 (0.1-0.6); Monocytes Percent Auto 6.8 % (2.6-8.5); Neutrophils Absolute Auto 9.5 K/mm3 (1.3-6.7); Neutrophils Percent Auto 69.4 % (45.5-73.1); Platelet Count Result 231 k/mm3 (150-375); Red Blood Count 3.94 M/mm3 (4.2-5.4); Red Cell Distribution Width 12.6 % (11.5-14.5); White Blood Count 13.6 K/mm3 (4.5-10.0)
[2023-08-24 19:17] LABS: Amphetamine Screen Urine Negative (Negative); Barbiturate Screen Urine Negative (Negative); Benzodiazepines Screen Urine Negative (Negative); Cannabinoid Screen Urine Positive (Negative); Cocaine Screen Urine Negative (Negative); Methadone Screen Urine Negative (Negative); Opiate Screen Urine Negative (Negative); Phencyclidine Screen Urine Negative (Negative)
--- NOTE | 2023-08-24 19:22 | LDADM ---
This patient, Mercy Pena, was admitted to Labor/Delivery/Recovery 104 on 08/24/23 at 18:23. Plans for labor, pain management and were discussed with patient. Patient/family oriented to hospital policies and general routines including ID bracelet, bed and alarms, visiting hours, pain management, procedures, bathroom and other care routines, personal items, smoking policy, room service/diet and guest tray routines, security routines, and visiting hours. Patient/Family are encouraged to report perceived risks to care and to ask questions if they do not understand what they are told or what they should do. See OBIX for further documentation.
--- NOTE | 2023-08-24 19:43 | WPDOBADMIT ---
Obstetrics - Admit Note Admission Note: record reviewed. No pertinent additions to the history and/or any subsequent changes in the physical findings that are not consistent with the expected course of the were found. Additions to the history and/or subsequent changes in the physical findings follow. Admit for IOL, chronic HTN, SVE /-3 attempted arom, plan cytotec then pitocin
[2023-08-24] MEDS: miSOPROStol 25 MCG TABLET 50 MCG PO (19:54)
--- NOTE | 2023-08-24 22:48 | WPDANESEPPF ---
Anes - Initial Pre Proc Eval Procedure: Labor epidural Date/Time: 08/24/23 22:48 Surgeon: Aristeo England MD Pre Op Diagnosis: Labor pain Pre Op Diagnosis: Labor Patient Data Age: 33 Gender: F Height: 1.83 m Weight: 120 kg Last Vital Signs Temp 36.3 C L 08/24/23 20:23 Pulse 80 08/24/23 22:06 BP 120/65 08/24/23 22:06 O2 Del Method Room Air 08/24/23 19:17 Allergies Allergy/AdvReac Type Severity Reaction Status Date / Time naproxen [From Aleve] Allergy Rash Verified 08/10/23 12:32 Home Medications Medication Instructions Recorded Confirmed Type cholecalciferol (vitamin D3) 50 50 mcg PO DAILY #60 caps 10/04/19 08/10/23 Rx mcg (2,000 unit) capsule buspirone 10 mg tablet 10 mg PO BID #60 tabs 01/08/20 08/10/23 Rx sertraline 100 mg tablet 100 mg PO DAILY #30 tabs 01/08/20 08/10/23 Rx ondansetron 4 mg disintegrating 4 mg PO Q6H PRN nausea and 01/20/23 08/10/23 Rx tablet vomiting #14 tabs cyclobenzaprine 10 mg tablet 10 mg PO HS PRN Pain, Mild 08/10/23 08/10/23 History vits no.126-ferrous fum 1 tablet PO DAILY 08/10/23 08/10/23 History 28 mg iron-folic acid 800 mcg tablet (Classic ) Laboratory Tests 08/24/23 18:44 WBC 13.6 H K/mm3 (4.5-10.0) RBC 3.94 L M/mm3 (4.2-5.4) Hgb 11.4 L g/dL (12.0-15.0) Hct 33.6 L % (37.0-47.0) MCV 85.3 fl (80-100) MCH 28.9 pg (26-34) MCHC 33.9 g/dl (32-36) RDW 12.6 % (11.5-14.5) Plt Count 231 k/mm3 (150-375) MPV 10.3 fl (7.4-10.4) Immature Gran % (Auto) 0.4 % (0-0.5) Neut % (Auto) 69.4 % (45.5-73.1) Lymph % (Auto) 22.8 % (18.3-44.2) Bledsoe % (Auto) 6.8 % (2.6-8.5) Eos % (Auto) 0.4 % (0-4.4) Baso % (Auto) 0.2 % (0.2-1.2) Lymph # (Auto) 3.11 K/mm3 (0.9-3.2) Bledsoe # (Auto) 0.9 H K/mm3 (0.1-0.6) Eos # (Auto) 0.1 K/mm3 (0-0.3) Baso # (Auto) 0.0 K/mm3 (0.0-0.1) Abs Immat Gran (auto) 0.05 H K/mm3 (0.00-0.031) Absolute Neuts (auto) 9.5 H K/mm3 (1.3-6.7) Absolute Nucleated RBC 0.000 K/mm3 (0.0-0.012) Nucleated RBC % 0.0 % (0.0-0.2) Urine Opiates Screen Negative (Negative) Urine Methadone Screen Negative (Negative) Ur Barbiturates Screen Negative (Negative) Ur Phencyclidine Scrn Negative (Negative) Ur Amphetamine Screen Negative (Negative) U Benzodiazepines Scrn Negative (Negative) Urine Cocaine Screen Negative (Negative) U Cannabinoids Screen Positive A (Negative) RPR Pending Blood Type O Negative Antibody Screen Negative Patient hx anesthesia problems: none Family hx anesthesia problems: none Results Review: All pre-operative results and documents have been reviewed as part of the pre-operative evaluation. [facility] Past Medical History Medical History Anxiety Asthma Depression Fibromyalgia History of vaginal delivery Surgical History Surgical History Pratt teeth removed Family History Family History Father Acute myocardial infarction Grandparent Acute myocardial infarction Mother Skin cancer Sibling High calcium levels Social History Social History Smoking status: Current every day smoker Tobacco type: e-cigarettes/vaping Second hand tobacco smoke exposure: Yes Alcohol intake: former Substance use: current Substance use type: marijuana Do You Feel Safe in your Home?: Yes Lack of Transportation: No Lack of Food: Never True Current Housing: I Have Housing Concerned About Future Housing: No Difficulty Paying Gas/Electric Bills: No Difficulty Paying for Meds: No Currently Unemployed: No Education: Bachelor's Degree Difficulty w/ Childcare or Family Care: No Gender identity (if verbalized by the patient): Female Spiritual care concerns: No Anes - Eval Final PreProcedure Day of Procedure 08/24/23 22:48 Patient weight: obese Heart: regular rate and rhythm Lungs: clear to auscultation Airway: Mallampati scale class II Neurological: alert and oriented ASA classification: III Anesthesia type and monitoring: regional epidural and standard monitoring Results Review: All pre-operative results and documents have been reviewed as part of the pre-operative evaluation. Informed Consent: The patient's anesthetic plan and its attendant risks and benefits were discussed with the patient/family/POA. Questions were solicited and answers provided to the satisfaction of the patient/family/POA.
[2023-08-24] MEDS: LACTATED RINGERS 1,000 ML 125 ML IV CONT (23:34)
[2023-08-25] VITALS (165 sets, daily range): BP systolic 84–172; BP diastolic 39–110; PULSE 45–153; RESP 16–18; TEMP 36.4–37.1; O2SAT 77–100
--- NOTE | 2023-08-25 00:39 | WPDANESEPN ---
Anes - Epidural Procedure Note Date/Time: 08/25/23 00:39 Consent: I have discussed with the patient/family/POA, the placement of an epidural catheter and the use of epidural narcotic/local anesthetic for labor analgesia and/or postoperative pain management, including associated potential risks, benefits, complications and side effects. I have discussed alternative methods of labor analgesia and/or postoperative pain management. The patient/family/POA, understand(s) and wish(es) to proceed with epidural narcotic/local anesthetic for labor analgesia and/or postoperative pain management. Time-Out: A pre-procedural Time-Out was completed immediately before starting the procedure and confirmed: Patient Identification, Site, Procedure, Patient Position and the Availability of Requisite Equipment. Clinical Indications: Labor pain Epidural Insertion Note Patient position: sitting Skin prep: chlorhexidine and sterile drape Needle: 18g Tuohy-Schliff Catheter: 20g Unstyleted Technique: Loss of resistance. Level of insertion: L4/5 Catheter skin deena (cm): 12 Length in epidural space (cm): 7 Skin anesthesia: lidocaine 1% Test dose: 1.5% Lidocaine with 1:[id number] Epi, negative for subarachnoid Inj and negative for intravascular Inj Time of test dose: 00:29 Observations: tolerated well Complications: none
[2023-08-25] MEDS: LACTATED RINGERS 1,000 ML 125 ML IV CONT ×2 (00:42→08:43)
[2023-08-25] MEDS: OXYTOCIN 30 UNITS/NS 500 ML 30 UNITS/500 ML BAG IV CONT (01:47)
--- NOTE | 2023-08-25 01:54 | PM.OBPNLAB ---
Pain Control Date/time seen: 08/25/23 01:54 Comments: SVE 2-3/70/-2 AROM moderate amount of clear, odorless fluid, anticipate vaginal delivery
--- NOTE | 2023-08-25 11:06 | PM.OBPRVD ---
OB - Vaginal Delivery Note Procedure Delivery date: 08/25/23 Events: Gestational Hypertension Induction method: AROM, Per Misoprostol Protocol and Per Pitocin Protocol Delivery monitor: External FHT and Internal Uterine Route of delivery: Episiotomy description: None Laceration Description: None Specimen: Yes Quantitative Blood Loss (ml): 80 Anesthesia type: Epidural Disposition: Floor Complications: No immediate complications Baby Date of : 08/25/23 Time of : 10:56 Weeks of gestation at delivery: 38 Infant gender: Female presentation: vertex position: Left Occiput Anterior Placenta delivery description: Spontaneous Cord Vessel Description: 3 Vessels and Nuchal Cord (x1) score one minute: 8 score five minutes: 9 Narrative: mother and baby skin to skin in stable condition
[2023-08-25] MEDS: OXYTOCIN 30 UNITS/NS 500 ML 30 UNITS/500 ML BAG 125 UNITS IV CONT (11:28)
[2023-08-25] MEDS: LORATADINE 10 MG TABLET PO (13:04)
[2023-08-25] MEDS: WITCH HAZEL 40 PADS 1 PAD TOPICAL (13:05)
[2023-08-25] MEDS: ACETAMINOPHEN 325 MG TABLET 650 MG PO ×2 (13:19→19:19)
[2023-08-25] MEDS: busPIRone HCL 10 MG TABLET PO ×2 (14:25→19:20)
[2023-08-25] MEDS: hydrOXYzine HCL 25 MG TABLET PO (14:26)
[2023-08-25] MEDS: SERTRALINE HCL 50 MG TABLET 100 MG PO (14:26)
[2023-08-25 15:52] LABS: Rapid Plasma Reagin Non-Reactive (NonReactive)
--- NOTE | 2023-08-25 16:42 | OBPPTRN ---
1323-Patient transferred to post room #281 via wheelchair. Support person present. Oriented to unit, room, information board, rooming in, admission packet and security measures. Patient verbalizes understanding.
--- NOTE | 2023-08-25 17:20 | PC.NURSE ---
1416-Patient was heard yelling very loudly at significant other in room. RN entered room to find mother and significant other arguing. Patient stated she did not want significant other to leave to go home for awhile. Two RN's worked to de-escalate the situation. Mother was given anxiety/depression medications and baby was taken to nursery. Father of baby left and mother calmed down and took a nap. Security was called and remained outside of room during situation. Director and Preschool Principal of unit were present also.
[2023-08-25] MEDS: hydrOXYzine HCL 25 MG TABLET 50 MG PO (19:20)
[2023-08-26 00:40] VITALS: BP 99/63; PULSE 73; RESP 18; TEMP 36.7; O2SAT 98
[2023-08-26 04:30] VITALS: BP 127/69; PULSE 69; RESP 18; TEMP 36.6; O2SAT 98
[2023-08-26 05:42] LABS: Hematocrit 36.4 % (37.0-47.0); Hemoglobin 12.1 g/dL (12.0-15.0)
[2023-08-26 06:50] VITALS: BP 117/81; PULSE 69; RESP 16; TEMP 36.5; O2SAT 100
--- NOTE | 2023-08-26 07:24 | WPDANLDPN2 ---
Anes-Prog Note L&D Date/Time: 08/26/23 07:24 Comfortable throughout: labor and delivery Neuraxial method: epidural Epidural/Spinal procedure site: clean & non-tender Neuro status: Neuro function grossly intact. Cardiovascular status: normal Respiratory status: normal Airway patency: baseline Mental status: baseline Post-Op hydration status: normal Vital Signs: Last Vital Signs Temp 36.5 C 08/26/23 06:50 Pulse 69 08/26/23 06:50 Resp 16 08/26/23 06:50 BP 117/81 08/26/23 06:50 Pulse Ox 100 08/26/23 06:50 O2 Del Method Room Air 08/26/23 06:50 Pain score (VAS): 05/18 I/O: Intake & Output 08/25/23 08/25/23 08/26/23 15:59 23:59 07:59 Intake Total 2077.1 550 Output Total 80 600 1700 Balance 1997.0 -766 -4794 Post-procedural complaints: none Patient feedback: Patient satisfied with anesthetic care.
--- NOTE | 2023-08-26 07:31 | PM.OBPNVD ---
OB - PN: Subj Subjective Date/time seen: 08/26/23 07:31 Interval history: pp day 1 bottle feeding doing well desires d/c home OB - PN: Obj Data Labs 08/26/23 04:46 Labs: Laboratory Results - last 24 hr 08/24/23 08/26/23 18:44 04:46 Hgb 12.1 Hct 36.4 L RPR Non-reactive Blood Type O Negative Antibody Screen Negative Baby's Blood Type O pos Baby's ALANA Negative OB - PN A/P Plan day: 1 Plan: routine care and discharge home Time Spent With Patient Time: Total time spent is greater than 50% in coordination of care (as documented) at patient's floor/unit and/or counseling patient: Review of Systems Review of Systems: All systems reviewed & are unremarkable except as noted in HPI and below Exam Const: General: cooperative and healthy appearing Chest: Chest palpation & inspection: normal inspection of the chest Resp: Effort & Inspection: normal respiratory effort Cardio: Rate: regular rate Skin: General skin exam: normal color Neuro: General: patient oriented x3
--- NOTE | 2023-08-26 07:34 | PM.OBDSVD ---
DS: Admitting Diagnosis Discharge Date 08/26/23 Admitting Diagnosis IOL, GHTN DS: Discharge Diagnosis Discharge Diagnosis (1) Vaginal delivery: Code(s): O80 - Encounter for full-term uncomplicated delivery Status: Acute OB - DS: Summary OB Procedures : None OB Procedures Intrapartum: Spontaneous Vag Delivery OB Procedures: : None Peripartum Data Laceration Description: None Episiotomy description: None Time Spent with Patient Time attestation: Total time spent providing and/or coordinating discharge services: DS: Data Data Completed and Pending Pending studies at discharge: Pending at discharge 08/25/23 10:58 Surgical [PTH] Routine Labs on day of discharge: Labs from last 24 hours 08/26/23 08/24/23 04:46 18:44 Hgb 12.1 Hct 36.4 L RPR Non-reactive Blood Type O Negative Antibody Screen Negative Screen Pending Baby's Blood Type O pos Baby's ALANA Negative Doses of RhIg Required Pending Discharge Plan Discharge Attending physician on discharge: Aristeo England Discharging Clinician: Loly Edge Patient Disposition: Home, Self-Care Activity: pelvic rest Diet: regular Patient Instructions: Antibiotic Form Stand Alone Forms: General Discharge Information Follow-up/Referrals: Loly Edge, CNM [Certified Nurse [employer] Announcements] - 4 Weeks Discharge Medications: New ibuprofen 600 mg Tablet 600 mg PO Q6H PRN (Reason: Cramping) Qty: 30 0RF Continued Classic 28 mg iron- 800 mcg Tablet 1 tablet PO DAILY hydroxyzine HCl 25 mg tablet 25 mg PO DAILY cholecalciferol (vitamin D3) 50 mcg (2,000 unit) capsule 50 mcg PO DAILY Qty: 60 0RF buspirone 10 mg tablet 10 mg PO BID Qty: 60 0RF sertraline 100 mg tablet 100 mg PO DAILY Qty: 30 0RF Discontinued ondansetron 4 mg tablet,disintegrating 4 mg PO Q6H PRN (Reason: nausea and vomiting) Qty: 14 0RF cyclobenzaprine 10 mg Tablet 10 mg PO HS PRN (Reason: Pain, Mild) hydroxyzine HCl 25 mg tablet 50 mg PO HS Date of admission: 08/24/23 18:23 Primary Care Provider: Stan Zuniga Admitting Provider: Aristeo England Attending physician on admission: Aristeo England Condition: Stable
[2023-08-26] MEDS: SERTRALINE HCL 50 MG TABLET 100 MG PO (08:04)
[2023-08-26] MEDS: busPIRone HCL 10 MG TABLET PO (08:05)
[2023-08-26] MEDS: hydrOXYzine HCL 25 MG TABLET PO (08:05)
[2023-08-26] MEDS: MULTIVIT/MIN/PREN/FOL AC/IRON TABLET 1 TAB PO (08:05)
[2023-08-26] MEDS: CHOLECALCIFEROL 1,000 UNITS TABLET 2000 UNITS PO (08:05)
--- NOTE | 2023-08-26 10:11 | PC.NURSE ---
note: Primary RN reported that mother is formula bottle feeding only.
--- NOTE | 2023-08-26 12:44 | PCCCNOTE ---
Recvd consult due to maternal drug use during . Pt. was + for THC upon admission. Pt. self admits testing + for Cocaine during UDS at the beginning of . Pt. reports using THC during due to anxiety and depression, and states has not used Cocaine since that + drug screen. Pt. reports she and baby girl will be living in [place], with CARMEN Braga (at bedside), and pt's 3 year old daughter. Pt. reports having all necessary supplies for baby and states not established with [facility] or [employer] [place] due to being over qualified. Pt. reports her grandparents are very supportive (at bedside), and FOB's father and step mother will be available too. Pt. denies any open DCFS cases, and states the last report that was made to DCFS that involved her was pertaining mostly to Omi and Omi's 16 year old daughter. Pt. denies any DCFS cases involving her 3 year old daughter. resources provided. DCFS Report made online #[id number]. JERMAINE Herbert aware. Umbilical cord drug screen pending. Recvd email from DCFS that states: Your information has been reviewed and assessed by a [employer] and was also approved by a cost control supervisor. The information you provided did not meet one of the criteria for an investigation (eligible victim, eligible perpetrator, eligible event, or jurisdiction). The information as been documented and will be kept on file. Should you learn of further information or have additional concerns, please feel free to contact us. JERMAINE shankar.
[2023-08-26 13:15] VITALS: BP 127/78
[2023-08-26] MEDS: RHO(D) IMMUNE GLOBULIN 300 MCG/2 ML SYRINGE IM (14:55)
[2023-08-29 10:09] VITALS: BP 147/80; PULSE 82; RESP 18; TEMP 36.8; O2SAT 100
== END 2023-08-26 15:05 | disposition home or self-care (01) | DRG 807 ==
LOC: ANHLDR 19:51 → ANHOB2 08-25 13:51
PROVIDERS: Advanced Practice Midwife; Admitting Provider Obstetrics & Gynecology; PCP Internal Medicine; Visit Provider Obstetrics & Gynecology
DX: O13.4 Gestational [pregnancy-induced] hypertension without significant proteinuria, complicating childbirth (principal); Z37.0 Single live birth; O69.81X0 Labor and delivery complicated by cord around neck, without compression, not applicable or unspecified; Z3A.38 38 weeks gestation of pregnancy
CPT/HCPCS: 36415; 80307; 85014; 85018; 85025; 85461; 86592; 86850; 86900; 86901; 88307; 90384; A9270; J2590; J2790; J2795; J7120

== ENCOUNTER 2023-08-29 10:24 | Outpatient (CLI) | payer OTHER, SELFPAY ==
[2023-08-29 10:50] VITALS: BP 119/79; PULSE 78
[2023-08-29 10:57] LABS: Basophils Percent Auto 0.3 % (0.2-1.2); Eosinophils Absolute Auto 0.2 K/mm3 (0-0.3); Eosinophils Percent Auto 2.5 % (0-4.4); Hematocrit 36.8 % (37.0-47.0); Hemoglobin 12.1 g/dL (12.0-15.0); Immature Granulocyte Absolute 0.03 K/mm3 (0.00-0.031); Immature Granulocyte Percent A 0.3 % (0-0.5); Lymphocytes Absolute Auto 1.96 K/mm3 (0.9-3.2); Lymphocytes Percent Auto 21.2 % (18.3-44.2); Mean Corpuscular HGB Conc 32.9 g/dl (32-36); Mean Corpuscular Hemoglobin 28.9 pg (26-34); Mean Corpuscular Volume 87.8 fl (80-100); Mean Platelet Volume 9.6 fl (7.4-10.4); Monocytes Absolute Auto 0.6 K/mm3 (0.1-0.6); Monocytes Percent Auto 6.6 % (2.6-8.5); Neutrophils Absolute Auto 6.4 K/mm3 (1.3-6.7); Neutrophils Percent Auto 69.1 % (45.5-73.1); Platelet Count Result 237 k/mm3 (150-375); Red Blood Count 4.19 M/mm3 (4.2-5.4); Red Cell Distribution Width 12.7 % (11.5-14.5); White Blood Count 9.2 K/mm3 (4.5-10.0)
[2023-08-29 11:00] VITALS: BP 112/73; PULSE 84
[2023-08-29 11:13] LABS: Alanine Aminotransferase 23 U/L (6-35); Albumin Level 3.6 g/dL (3.5-5.1); Alkaline Phosphatase 126 U/L (38-126); Anion Gap 5 mmol/L (4-12); Aspartate Amino Transferase 31 U/L (14-36); Bilirubin,Total 0.4 mg/dL (0.2-1.3); Blood Urea Nitrogen 10 mg/dL (7-17); Calcium 9.3 mg/dL (8.4-10.2); Carbon Dioxide 23 mmol/L (22-30); Chloride 110 mmol/L (98-107); Estimated Glomerular Filt Rate > 60; Glucose 96 mg/dL (65-110); Potassium 4.1 mmol/L (3.4-5.0); Sodium 138 mmol/L (137-145); Uric Acid 6.8 mg/dL (2.5-7.5)
[2023-08-29 11:15] VITALS: BP 119/86; PULSE 74
== END 2023-08-29 11:20 | disposition home or self-care (01) ==
LOC: ANHOBOP 10:37 → ANHOBPP 10:39
PROVIDERS: PCP Internal Medicine; Visit Provider Advanced Practice Midwife
DX: O13.9 Gestational [pregnancy-induced] hypertension without significant proteinuria, unspecified trimester (principal); Z3A.00 Weeks of gestation of pregnancy not specified
CPT/HCPCS: 36415; 80053; 84550; 85025; 99199